=== PATIENT | male | born 1970 | race Caucasian/White ===

== ENCOUNTER 2016-08-26 15:35 | Emergency (ER) | payer OTHER ==
[2016-08-26 15:52] VITALS: BP 147/97
--- NOTE | 2016-08-26 16:41 | ED Physician Documentation ---
PD HPI UPPER EXT INJURY - Stated complaint Stated Complaint: RT ELBOW INJ - Chief complaint Chief Complaint: Ext Problem - History obtained from History obtained from: Patient - History of Present Illness Location: Right, Elbow Type of injury: Fall Where injury occurred: Work Timing - onset: Today Timing - duration: Hours (4) Timing - details: Abrupt onset Pain level max: 6 Pain level now: 3 Improved by: Rest, Ice, Immobilization Worsened by: Moving, Palpating Associated symptoms: No: Weakness, Numbness, Tingling, Swelling Contributing factors: No: Anticoagulated, Prior ortho surgery Similar symptoms before: Has not had sx before Recently seen: Not recently seen Review of Systems Skin: denies: Rash Musculoskeletal: denies: Neck pain Neurologic: denies: Focal weakness, Numbness, Head injury PD PAST MEDICAL HISTORY - Past Medical History Past Medical History: No Cardiovascular: None Respiratory: None Neuro: None Endocrine/Autoimmune: None GI: None : None HEENT: None Musculoskeletal: None Derm: None - Allergies Allergies/Adverse Reactions: Allergies Allergy/AdvReac Type Severity Reaction Status Date / Time No Known Drug Allergies Allergy Verified 08/26/16 15:52 - Social History Does the pt smoke?: Yes Smoking Status: Former smoker PD ED PE NORMAL - Vitals Vital signs reviewed: Yes - General General: Alert and oriented X 3, No acute distress - Derm Derm: Warm and dry - Extremities Extremities: Other (Right elbow - Tender to palpation over the lateral epicondyle. He does have full extension of the elbow as well as pronation and supination, however there is some pain with this. No significant swelling. Neurovascularly intact.) - Neuro Neuro: Alert and oriented X 3 Results - Vitals Vitals: Vital Signs - 24 hr 08/26/16 15:49 Temperature 37 C Heart Rate 87 Respiratory 17 Rate Blood Pressure 147/97 H O2 Saturation 96 Oxygen O2 Source Room air - Rads (name of study) R elbow Radiology: Prelim report reviewed, EMP read contemporaneously, See rad report ( normal) PD MEDICAL DECISION MAKING - ED course Complexity details: reviewed results, re-evaluated patient, considered differential, d/w patient ED course: Patient with a right elbow contusion at work today. Normal musculature. No muscle ruptures. Normal x-ray. Using the arm well. Declines any pain medication for home. We will have him follow-up with his doctor for further evaluation and care. Patient counseled regarding signs and symptoms for which I believe and urgent re-evaluation would be necessary. Patient with good understanding of and agreement to plan and is comfortable going home at this time This document was made in part using voice recognition software. While efforts are made to proofread this document, sound alike and grammatical errors may occur. Departure - Departure Disposition: 01 Home, Self Care Clinical Impression: Elbow contusion Qualifiers: Encounter type: initial encounter Laterality: right Qualified Code(s): S50.01XA - Contusion of right elbow, initial encounter Condition: Good Instructions: ED Contusion Elbow Follow-Up: your,doctor in 1 week [Other] Comments: Your x-rays are normal today. You can use Motrin or Tylenol as needed for pain at home. Discharge Date/Time: 08/26/16 17:26
--- NOTE | 2016-08-26 17:14 | XRAY Preliminary Report ---
Exam: XR Elbow 3 View RT IMPRESSION: No evidence of fracture or dislocation. [facility] SITE ID: [id number]
--- NOTE | 2016-08-26 17:16 | XRAY Report ---
EXAM: RIGHT ELBOW RADIOGRAPHY EXAM DATE: 08/26/2016 04:51 PM. CLINICAL HISTORY: Fall, R elbow pain. COMPARISON: None. TECHNIQUE: 3 views. FINDINGS: Bones: Normal. No fractures or bone lesions. Joints: Normal. No effusion. No subluxation. Soft Tissues: Normal. No soft tissue swelling. IMPRESSION: No evidence of fracture or dislocation. [facility] Referring Provider Line: [phone] SITE ID: [id number]
== END 2016-08-26 17:26 | disposition home or self-care (01) ==
LOC: ED 15:35
DX: S50.01XA Contusion of right elbow, initial encounter (principal); W01.0XXA Fall on same level from slipping, tripping and stumbling without subsequent striking against object, initial encounter; Y92.89 Other specified places as the place of occurrence of the external cause; Y99.0 Civilian activity done for income or pay; Z87.891 Personal history of nicotine dependence
CPT/HCPCS: 99283

== ENCOUNTER 2020-04-29 21:28 | Outpatient (CLI) | payer OTHER | END 2020-04-29 21:29 | disposition home or self-care (01) | LOC: COV 21:28 | PROVIDERS: ATTEND Family Medicine | DX: R05 Cough (principal); R06.02 Shortness of breath; R53.83 Other fatigue; R07.0 Pain in throat; R09.81 Nasal congestion; J34.89 Other specified disorders of nose and nasal sinuses; Z20.822 Contact with and (suspected) exposure to COVID-19 ==

== ENCOUNTER 2020-08-04 09:35 | Outpatient (CLI) | payer OTHER | END 2020-08-04 09:36 | disposition home or self-care (01) | LOC: COV 09:35 | PROVIDERS: ATTEND Family Medicine | DX: R05 Cough (principal); R06.02 Shortness of breath; M79.10 Myalgia, unspecified site; R53.83 Other fatigue; R68.83 Chills (without fever); R07.0 Pain in throat; R43.9 Unspecified disturbances of smell and taste; R09.81 Nasal congestion; J34.89 Other specified disorders of nose and nasal sinuses; Z20.822 Contact with and (suspected) exposure to COVID-19 ==

== ENCOUNTER 2023-10-02 21:54 | Emergency (ER) | payer OTHER ==
[2023-10-02 22:20] VITALS: O2SAT 97
--- NOTE | 2023-10-02 22:44 | ED Physician Documentation ---
PD HPI UPPER EXT INJURY - Stated complaint Stated Complaint: LT FINGER LAC - Chief complaint Chief Complaint: Laceration - History obtained from History obtained from: Patient - Additonal information Additional information: HPI from patient. Patient is right-hand dominant. Patient presents due to laceration sustained to the tip of his left thumb at approximately 9:30 PM today at home while working with a open can. He says the sharp edge of the open can lid excellently lacerated the left thumb. He says he is not up-to-date on his tetanus shots. Denies numbness, weakness. PD PAST MEDICAL HISTORY - Past Medical History Cardiovascular: None Respiratory: None Endocrine/Autoimmune: None GI: None : None HEENT: None Musculoskeletal: None Derm: None - Past Surgical History Past Surgical History: Yes Ortho: ACL reconstruction - Present Medications Home Medications: Ambulatory Orders Medication Instructions Recorded Confirmed No Known Home Medications 10/02/23 10/02/23 - Allergies Allergies/Adverse Reactions: Allergies Allergy/AdvReac Type Severity Reaction Status Date / Time No Known Drug Allergies Allergy Verified 10/02/23 22:13 - Social History Does the pt smoke?: Yes Smoking Status: Current every day smoker Does the pt drink ETOH?: Yes ETOH Use: Beer - Immunizations Immunizations are current?: Yes PD ED PE NORMAL - Vitals Vital signs reviewed: Yes - General General: Alert and oriented X 3, No acute distress, Well developed/nourished - Neuro Neuro: No sensory deficit (LTS intact tip of left thumb with brisk capillary refill) PD ED PE EXPANDED - Extremities BRYANT UE/Hands Visual: 1 - laceration (1.5 cm laceration with active but nonpulsatile bleeding) Results - Vitals Vitals: Vital Signs - 24 hr 10/02/23 10/02/23 22:04 23:37 Temperature 36.4 C L Heart Rate 69 65 Respiratory 20 18 Rate Blood Pressure 139/93 H 133/88 H O2 Saturation 97 97 Oxygen O2 Source Room air Procedures - Laceration (location) Finger left Length in cm: 1.5 (rubber ring finger tournequet used for hemostasis during repair) Wound type: Linear, Into subcut fat, Clean Neurovascular status: Sensory intact, Motor intact, Vascular intact Tendon involvement: Tendon intact Anesthesia: Lidocaine 1%, With bicarb Wound preparation: Chlorhexadine, Irrigated copiously NS, Wound explored Skin layer closure: Nylon, Running, Sutures - enter # (4-0) Other: Patient tolerated well, No complications, Neurovascular intact, Dressing applied, Tetanus booster given PD Medical Decision Making - ED course Complexity details: reviewed results, re-evaluated patient, considered differential, d/w patient ED course: Presents with isolated injury, left thumb laceration which is repaired as above (procedure note). He is given a tdap booster and instructed to seek follow-up in the outpatient setting for suture removal in 7 to 10 days. Departure - Departure Disposition: 01 Home, Self Care Clinical Impression: Laceration Condition: Good Instructions: ED Laceration Ext Sutr Stap Tape Comments: Contact your primary care provider when the office next opens to arrange for an appointment in 7 to 10 days for removal of the stitches. Discharge Date/Time: 10/02/23 23:37
[2023-10-02] MEDS: BUFFERED LIDOCAINE 10 ML SYRINGE SUBQ STA (23:05)
[2023-10-02] MEDS: TETANUS/DIPHTHERIA/PERTUSSIS 0.5 ML SYRINGE IM ONE (23:06)
[2023-10-02] MEDS: BACITRACIN ZINC OINT 1 PACKET TOP STA (23:29)
[2023-10-02 23:42] VITALS: BP 133/88
== END 2023-10-02 23:37 | disposition home or self-care (01) ==
LOC: ED 21:54
DX: S61.012A Laceration without foreign body of left thumb without damage to nail, initial encounter (principal); W26.8XXA Contact with other sharp object(s), not elsewhere classified, initial encounter; Z23 Encounter for immunization; F17.200 Nicotine dependence, unspecified, uncomplicated
CPT/HCPCS: 12001; 90471; 90715; 99283; A9270